=== PATIENT | female | born 1965 | race Caucasian/White ===

== ENCOUNTER 2017-02-18 18:23 | Emergency (ER) | payer OTHER ==
[2017-02-18] MEDS ORDERED: Ketorolac 60 MG/2 ML SDV IM ONE (19:10)
--- NOTE | 2017-02-18 20:25 | EDM.PDOC ---
ED HPI GENERAL MEDICAL PROBLEM - General Chief Complaint: Lower Extremity Injury/Pain Stated Complaint: PT HURT RT FOOT Time Seen by Provider: 02/18/17 19:05 Source of Information: Reports: Patient History Limitations: Reports: No Limitations - History of Present Illness INITIAL COMMENTS - FREE TEXT/NARRATIVE: History of present illness: [51-year-old female presenting with complaint of acute trauma to right foot. Status post twisting injury to the front of right foot on patio furniture secondary to PET] Review of systems: As per history of present illness and below otherwise all systems reviewed and negative. Past medical history: As per history of present illness and as reviewed below otherwise noncontributory. Surgical history: As per history of present illness and as reviewed below otherwise noncontributory. Social history: No reported history of drug or alcohol abuse. Family history: As per history of present illness and as reviewed below otherwise noncontributory. Physical exam: HEENT: Atraumatic, normocephalic, pupils reactive, negative for conjunctival pallor or scleral icterus, mucous membranes moist, throat clear, neck supple, nontender, trachea midline. Lungs: Clear to auscultation, breath sounds equal bilaterally, chest nontender. Heart: S1S2, regular, negative for clicks, rubs, or JVD. Abdomen: Soft, nondistended, nontender. Negative for masses or hepatosplenomegaly. Negative for costovertebral tenderness. Pelvis: Stable nontender. Genitourinary: Deferred. Rectal: Deferred. Extremities: Right foot with some bruising on the plantar aspect at the toe second third and fourth toe with some bruising, without deformity negative for cords or calf pain. Neurovascular unremarkable. CMST intact Neuro: Awake, alert, oriented. Cranial nerves II through XII unremarkable. Cerebellum unremarkable. Motor and sensory unremarkable throughout. Exam nonfocal. Diagnostics: [X-ray right foot] Therapeutics: [Toradol 60 mg IM] Impression: [Contusion] Plan: [Walking shoe, OTC pain meds, brief run of Fleming] Definitive disposition and diagnosis as appropriate pending reevaluation and review of above. right foot Pain Score (Numeric/FACES): 4 - Related Data Allergies Allergy/AdvReac Type Severity Reaction Status Date / Time erythromycin base Allergy Hives Verified 02/18/17 18:49 Home Meds: Home Meds LORazepam 0 mg PO BID PRN 02/18/17 [History] Levothyroxine Sodium [Levoxyl] 100 mcg PO ACBREAKFAST 02/18/17 [History] Topiramate [Topamax] 30 mg PO QID 02/18/17 [History] Past Medical History - Past Health History Medical/Surgical History: Denies Medical/Surgical History [employer] History: Reports: Musculoskeletal History: Reports: Fibromyalgia, Other (See Below) Other Musculoskeletal History: TMJ Endocrine/Metabolic History: Reports: Hypothyroidism, Other (See Below) Other Endocrine/Metabolic History: rosemary ds Immunologic History: Reports: Other (See Below) Other Immunologic History: autoimmune ds - Past Surgical History Other HEENT Surgeries/Procedures: nasal surgery Other Musculoskeletal Surgeries/Procedures:: RLS Social & Family History - Family History Family Medical History: Noncontributory - Tobacco Use Smoking Status *Q: Current Every Day Smoker Years of Tobacco use: 32 Packs/Tins Daily: 1 - Caffeine Use Caffeine Use: Reports: Coffee Caffeine Use Comment: 2 cups daily - Recreational Drug Use Recreational Drug Use: No Review of Systems - Review of Systems Review Of Systems: See Below (See history of present illness) ED EXAM, GENERAL - Physical Exam Exam: See Below (See history of present illness) Course - Vital Signs Last Recorded V/S: Last Vital Signs Temp 36.9 C 02/18/17 18:50 Pulse 107 H 02/18/17 18:50 Resp 16 02/18/17 18:50 BP 127/81 02/18/17 18:50 Pulse Ox 97 02/18/17 18:50 - Orders/Labs/Meds Orders: Active Orders 24 hr Category Date Time Status Foot Comp Min 3V Rt [CR] Stat Exams 02/18/17 19:09 Taken Meds: Medications Discontinued Medications Generic Name Dose Route Start Last Admin Trade Name Freq PRN Reason Stop Dose Admin Ketorolac Tromethamine 60 mg 02/18/17 19:10 02/18/17 19:21 Toradol IM 02/18/17 19:11 60 mg ONETIME ONE Administration Departure - Departure Time of Disposition: 20:23 Disposition: Home, Self-Care 01 Condition: good Clinical Impression: Contusion of right foot including toes - Discharge Information Forms: ED Department Discharge Additional Instructions: The following information is given to patients seen in the emergency department who are being discharged to home. This information is to outline your options for follow-up care. We provide all patients seen in our emergency department with a follow-up referral. The need for follow-up, as well as the timing and circumstances, are variable depending upon the specifics of your emergency department visit. If you don't have a primary care physician on staff, we will provide you with a referral. We always advise you to contact your personal physician following an emergency department visit to inform them of the circumstance of the visit and for follow-up with them and/or the need for any referrals to a consulting specialist. The emergency department will also refer you to a specialist when appropriate. This referral assures that you have the opportunity for follow-up care with a specialist. All of these measure are taken in an effort to provide you with optimal care, which includes your follow-up. Under all circumstances we always encourage you to contact your private physician who remains a resource for coordinating your care. When calling for follow-up care, please make the office aware that this follow-up is from your recent emergency room visit. If for any reason you are refused follow-up, please contact the [facility] Emergency Department at and asked to speak to the emergency department charge nurse. Stay off foot as much as possible Keep elevated as much as possible Take medication as prescribed Follow-up with PCP in 1-2 days Return to ED as needed as discussed - My Orders Last 24 Hours: My Active Orders 02/18/17 19:09 Foot Comp Min 3V Rt [CR] Stat - Assessment/Plan Last 24 Hours: My Active Orders 02/18/17 19:09 Foot Comp Min 3V Rt [CR] Stat
[2017-02-19 01:32] VITALS: BP 121/80
--- NOTE | 2017-02-19 11:43 | CR ---
EXAM DATE: 02/18/17 PATIENT'S AGE: 51 Patient: MILES JUDD Facility: [place], [place] Site . Site : [id number] Study: XRay Extremity Right [id number] foot-02/18/2017 7:44:09 PM Ordering Physician: Doctor Barillas Final Report: INDICATION: Trauma TECHNIQUE: Three views of the right foot COMPARISON: None FINDINGS: Bones: Remote posttraumatic deformity of the fibular sesamoid. No acute fractures or bone lesions. Joint spaces: Unremarkable. Soft tissues: Unremarkable. IMPRESSION: No acute bony abnormality. Dictated by Khadar Nelson MD @ 02/18/2017 8:00:27 PM Dictated by: Khadar Nelson MD @ 02/18/2017 20:00:44 (Electronic Signature) Report Signed by Proxy. [email or web address]
== END 2017-02-18 20:56 | disposition home or self-care (01) ==
LOC: MW.ED 18:23
DX: S90.31XA Contusion of right foot, initial encounter (principal); S90.121A Contusion of right lesser toe(s) without damage to nail, initial encounter; E03.9 Hypothyroidism, unspecified; F17.210 Nicotine dependence, cigarettes, uncomplicated; Z88.1 Allergy status to other antibiotic agents; Z98.890 Other specified postprocedural states; W18.40XA Slipping, tripping and stumbling without falling, unspecified, initial encounter
CPT/HCPCS: 73630; 96372; 99283; J1885